=== PATIENT | male | born 1940 | race Caucasian/White ===

== ENCOUNTER 2016-05-20 14:31 | Emergency (ER) | payer OTHER ==
[~2016-05-20] VITALS: Ht 162.6 cm; Wt 77.6 kg
[~2016-05-20 14:31] MED LIST: ARTHRICREAM 10% TOP; CIPRO 500MG (E500 MG PO; CLARITIN 24HR10 MG PO; FLAG500 PO; FLOMAX(MONOGRA0.4 MG PO; HCTZ/LISINOPRIL1 TA1 PO; LABETALOL HCL200 M1 PO; LABETALOL HYDR200 MG PO; METFORMIN HCL500 MG PO; MOTRIN 600 MG600 MG PO; PERCOCET 325 MG1 TA2 PO; POTASSIUM CHLO10 ME1 PO; TOPROL XL25 MG PO; TRANDATE-NORMO200 MG PO; TYLENOL500 MG PO; VITAB121000 PO; ZOCOR10 M1 PO
--- NOTE | 2016-05-20 15:08 | ED GENERAL ADULT ---
History of Present Illness General Chief Complaint: General Adult Stated Complaint: HIGH BLOOD PRESSURE, IRREGULAR HEART BEAT Source: patient, family, old records Exam Limitations: no limitations Vital Signs & Intake/Output Vital Signs & Intake/Output Vital Signs Date Time Temp Pulse Resp B/P Pulse O2 O2 Flow FiO2 Ox Delivery Rate 05/20 1919 97.6 71 18 137/77 95 Room Air 05/20 1743 98.8 71 18 142/86 98 Room Air 05/20 1520 96 Room Air 05/20 1515 98.6 69 18 180/92 96 Room Air 05/20 1443 96.8 74 16 199/98 96 Room Air Allergies Coded Allergies: NO KNOWN ALLERGIES (09/22/15) Reconcile Medications Labetalol HCl 200 MG TABLET 1 TAB PO BID HEART (Reported) Lisinopril 20 MG TABLET 1 TAB PO DAILY HEART (Reported) Simvastatin (Zocor*) 10 MG TABLET 1 TAB PO QPM CHOLESTEROL (Reported) Triage Note: PT STATES HIS BP IS HIGH AND HE IS HAVING AN HEART PALPATIONS. PT STATES HE THINKS THEY BEGAN OVERNIGHT. Triage Nurses Notes Reviewed? yes HPI: Patient states that since last night he has been having intermittent substernal chest heaviness. Heaviness will last a few minutes and then go away. Past History Travel History Traveled to [place] past 21 day No Medical History Any Pertinent Medical History? 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 No Review of Systems Review of Systems Constitutional: Reports: no symptoms. EENTM: Reports: no symptoms. Respiratory: Reports: no symptoms. Cardiovascular: Reports: see HPI, chest pain. GI: Reports: no symptoms. Genitourinary: Reports: no symptoms. Musculoskeletal: Reports: no symptoms. Skin: Reports: no symptoms. Neurological/Psychological: Reports: see HPI, headache. Hematologic/Endocrine: Reports: no symptoms. Immunologic/Allergic: Reports: no symptoms. All Other Systems: Reviewed and Negative Physical Exam Physical Exam General Appearance: well developed/nourished, alert, awake, anxious, mild distress Head: atraumatic, normal appearance Eyes: Bilateral: PERRL, EOMI, other (SHARP DISC MARGINS). Ears, Nose, Throat: normal pharynx, normal ENT inspection Neck: normal inspection, supple, full range of motion Respiratory: normal breath sounds, chest non-tender, no respiratory distress, lungs clear Cardiovascular: regular rate/rhythm, normal peripheral pulses Gastrointestinal: normal bowel sounds, soft, non-tender, no organomegaly Back: normal inspection, normal range of motion Extremities: normal inspection, normal capillary refill, normal range of motion, no edema Neurologic/Psych: no motor/sensory deficits, awake, alert, oriented x 3, normal gait, normal mood/affect Skin: intact, normal color, cyanosis Core Measures ACS in differential dx? No CVA/TIA Diagnosis: No Severe Sepsis Present: No Septic Shock Present: No Progress Differential Diagnoses I considered the following diagnoses in my evaluation of the patient: [AMI, electrolyte abnormality, hypertensive urgency, hypertensive crisis] Plan of Care: Orders Procedure Date/time Status Regular Diet 05/21 B Active TROPONIN LEVEL 05/20 1935 Active Telemetry/[place] 05/20 1519 Active TROPONIN LEVEL 05/20 1519 Complete COMPREHENSIVE METABOLIC PANEL 05/20 1519 Complete CBC WITHOUT DIFFERENTIAL 05/20 1519 Complete EKG 05/20 1433 Active Laboratory Tests 05/20/16 2008: Troponin I Pending 05/20/16 1527: Anion Gap 11, Estimated GFR > 60, BUN/Creatinine Ratio 11.8, Glucose 127 H, Calcium 11.0 H, Total Bilirubin 0.9, AST 23, ALT 32, Alkaline Phosphatase 92, Troponin I < 0.01, Total Protein 6.9, Albumin 4.4, Globulin 2.5, Albumin/ Globulin Ratio 1.8, CBC w Diff NO MAN DIFF REQ, RBC 5.15, MCV 92.4, MCH 30.5, RDW 14.7 H, MPV 8.2, Gran % 85.1 H, Lymphocytes % 10.3 L, Monocytes % 3.7, Eosinophils % 0.4, Basophils % 0.5, Absolute Granulocytes 7.1 H, Absolute Lymphocytes 0.9 L, Absolute Monocytes 0.3, Absolute Eosinophils 0, Absolute Basophils 0, PUBS MCHC 33.0 Initial ED EKG: pacemaker rhythm Prior EKG: unchanged Rhythm Strip: PACED WITH PVC'S Comments: Case was discussed with Dr. Escalona. A second set of enzymes are negative he may be discharged and Dr. Trammell will follow-up with him. Departure Departure Disposition: HOME OR SELF CARE Condition: Stable Clinical Impression Primary Impression: Chest pain Secondary Impressions: Hypertension Referrals: NATASHA ALCANTAR,YOLANDA Gonzalez (PCP/Family) MARIAN ALCANTAR,Davi MANRIQUEZ Additional Instructions: return if symptoms worsen or for any concerns Departure Forms: Customer Survey General Discharge Information Critical Care Note Critical Care Note Critical Care Time: non-applicable
[2016-05-20] MEDS ORDERED: LISINOPRIL20 M1 PO (15:28)
[2016-05-20 15:38] LABS: ABSOLUTE BASOPHIL COUNT 0 /CUMM (0.0-0.2); ABSOLUTE EOSINOPHIL COUNT 0 /CUMM (0.0-0.7); ABSOLUTE GRANULOCYTE CT 7.1 /CUMM (1.4-6.5); ABSOLUTE LYMPH COUNT 0.9 /CUMM (1.2-3.4); ABSOLUTE MONOCYTE COUNT 0.3 /CUMM (0.10-0.60); BASOPHIL % 0.5 % (0.0-2.0); EOSINOPHIL % 0.4 % (0-5); HEMATOCRIT 47.5 % (42-52); MEAN CORPUSCULAR HGB 30.5 PG (27.0-31.0); MEAN CORPUSCULAR VOLUME 92.4 FL (80.0-94.0); MEAN PLATELET VOLUME 8.2 FL (7.4-10.4); PLATELET COUNT 252 /CUMM (130-400); RBC DISTRIBUTION WIDTH 14.7 % (11.5-14.5); RED BLOOD CELL CT 5.15 /CUMM (4.70-6.10); WHITE BLOOD CELL COUNT 8.4 /CUMM (4.8-10.8)
[2016-05-20 15:39] LABS: GRANULOCYTE % 85.1 % (42.2-75.2)
--- NOTE | 2016-05-20 16:27 | CT SCAN REPORT ---
EXAMINATION: CT HEAD WITHOUT CONTRAST CLINICAL INFORMATION: Hypertension and headache. Evaluate for acute intracranial hemorrhage. COMPARISON: None. TECHNIQUE: Contiguous axial imaging was performed from the skull base to vertex without intravenous administration of contrast. DLP: 600 mGy-cm FINDINGS: Noncontrast CT imaging of the brain demonstrates generalized parenchymal volume loss with proportional prominence of the sulci and ventricles. No acute intracranial abnormality. No acute intracranial hemorrhage, mass or mass effect or abnormal extra-axial fluid collections. The density within the dural venous sinuses is within normal limits. There are no focal areas of hypoattenuation within a vascular distribution to suggest acute transcortical ischemia. The basilar cisterns are patent. Coarse calcifications of the intracranial vasculature are identified. No acute calvarial abnormality is identified. Soft tissues appear unremarkable. The imaged paranasal sinuses and mastoid air cells are well aerated. IMPRESSION: No acute intracranial abnormality.
[2016-05-20 21:04] VITALS: BP 135/84
[2016-07-08] MEDS ORDERED: CLARITIN-D 241 EACH PO (11:30)
[2016-07-08] MEDS ORDERED: VITAMIN B-121000 MC3 PO (11:31)
== END 2016-05-20 21:02 ==
LOC: ERH 14:31
PROVIDERS: Emergency Medicine
DX: R07.2 Precordial pain (principal); I10 Essential (primary) hypertension; Z87.891 Personal history of nicotine dependence; R51 Headache
CPT/HCPCS: 93005; 93010

== ENCOUNTER → 2016-07-13 | Day surgery (SDC) | payer OTHER ==
[~2016-07-13] VITALS: Ht 162.6 cm; Wt 78.0 kg
[~2016-07-13] MED LIST changes: +CLARITIN-D 241 EACH PO; +LISINOPRIL20 M1 PO; +VITAMIN B-121000 MC3 PO
--- NOTE | 2016-07-13 15:18 | Operative Report ---
Operative/Inv Procedure Report Surgery Date: 07/13/16 Name of Procedure: Removal of right subclavian portacatheter Pre-Operative Diagnosis: Removal of right subclavian portacatheter Post-Operative Diagnosis: Colon cancer Estimated Blood Loss: scant Surgeon/Care Analyst: ELISA RAMOS JR, DO Anesthesia: local monitored anesthesi, block Monitors: Per routine Implants: None Drains: None Specimens: Port-A-Cath for gross inspection only Complications: None Condition: Good Operative Indication: This is a 75-year-old gentleman who is status post a low anterior resection for stage III colon cancer. He has subsequently completed adjuvant chemotherapy. At this point he appears to have no active disease present from removal of his Port-A-Cath Operative/Procedure Note Note: Patient was taken into the operating room and placed in the supine position on the operating room table with the right arm tucked. IV sedation was initiated with the patient was comfortable the right chest and neck were prepped and draped in usual fashion. A block was performed with 1% lidocaine with epinephrine. A total of 10 mL of local was used to complete the block. After completing the block and incision was made over the previous scar and taken down to the dermis. This dermis and subcutaneous tissues were then divided with electrocautery until I encountered the capsule around the port. The capsule around the port was incised with electrocautery and a single Prolene stitch that was holding the port in place was excised. The port was then removed and pressure was held over the some clavian vein for several minutes. There was no bleeding at any point during operation. The capsule that had formed around the catheter portion of the port was ligated with 2-0 Vicryl suture. The incision was then closed in 2 layers. A deep dermal layer was closed with interrupted 3- 0 Vicryl sutures. A running subcuticular closure was performed with 4-0 monofilament absorbable suture. The skin was then cleansed and dried. Mastisol and Steri-Strips were applied. Telfa and Tegaderm were then applied over the incision. The patient tolerated the procedure well and was taken to recovery area in good condition. At the end of this procedure all needle sponges and measurements were accounted for. Discharge Disposition: PACU CC: TRISTEN ALCANTAR,ESTEPHANIE Wesley
== END ==
LOC: STS 04:16
DX: Z45.2 Encounter for adjustment and management of vascular access device (principal); Z85.038 Personal history of other malignant neoplasm of large intestine; I10 Essential (primary) hypertension; Z95.0 Presence of cardiac pacemaker; I44.2 Atrioventricular block, complete